=== PATIENT | male | born 1940 | race Caucasian/White ===

== ENCOUNTER 2023-11-19 20:55 | Emergency (ER) | payer OTHER ==
[~2023-11-19] VITALS: Ht 180.3 cm; Wt 56.7 kg
[2023-11-19 20:57] VITALS: BP 174/84; PULSE 76; RESP 16; TEMP 98.2; O2SAT 96
[2023-11-20 11:32] VITALS: BP 157/53; PULSE 74; RESP 16; TEMP 97.7; O2SAT 98
== END 2023-11-20 11:32 | disposition home or self-care (01) ==
LOC: MED 20:55
DX: Z00.8 Encounter for other general examination (principal); Z79.899 Other long term (current) drug therapy; Z90.49 Acquired absence of other specified parts of digestive tract; W06.XXXA Fall from bed, initial encounter; Y93.89 Activity, other specified; Y92.89 Other specified places as the place of occurrence of the external cause; Y99.8 Other external cause status
CPT/HCPCS: 99283